=== PATIENT | female | born 1960 | race African-American/Black ===

== ENCOUNTER 2023-03-23 20:08 | Emergency (ER) | payer MEDICARE, OTHER ==
[~2023-03-23] VITALS: Ht 170.2 cm; Wt 91.0 kg
[2023-03-23] MEDS ORDERED: ACET1CAP14 PO (23:53)
[2023-03-24] MEDS ORDERED: ONDANSETRON ODT 4 MG TAB PO ONE
[2023-03-24] MEDS ORDERED: ACETAMINOPHEN/CODEINE#3 (300/30mg) TAB PO ONE
[2023-03-24 00:13] VITALS: BP 133/77
== END 2023-03-24 00:13 | disposition home or self-care (01) ==
LOC: ER 20:12
DX: S00.03XA Contusion of scalp, initial encounter (principal); E11.9 Type 2 diabetes mellitus without complications; I10 Essential (primary) hypertension; W22.8XXA Striking against or struck by other objects, initial encounter; Y93.89 Activity, other specified; Y92.89 Other specified places as the place of occurrence of the external cause; Y99.8 Other external cause status
CPT/HCPCS: 70450; 99284; Q0162